=== PATIENT | female | born 1935 | race Caucasian/White ===

== ENCOUNTER 2016-09-23 13:30 | Emergency (ER) | payer MEDICARE, BC ==
--- NOTE | ~2016-09-23 | EKG ---
PATIENT: THANG CHENG UNIT #: [id number] Ventricular Rate: 78 BPM Atrial Rate: 78 BPM P-R Interval: 140 ms QRS Duration: 82 ms Q-T Interval: 354 ms QTC Calculation(Bezet): 403 ms P [place]: 77 degrees Calculated R [place]: -31 degrees Calculated T [place]: 59 degrees Diagnosis Line: Sinus rhythm Premature atrial complexes Diagnosis Line: Left axis deviation Diagnosis Line: Abnormal ECG Diagnosis Line: When compared with ECG of 16-MAR-2013 12:41, Diagnosis Line: No significant change was found Diagnosis Line: Confirmed by SUHAS CANALES MD ([id number]) on 09/24/2016 Diagnosis Line: 5:55:37 PM INTERPRETING MD: LALY IVERA
--- NOTE | ~2016-09-23 | CR72 ---
[facility] A Service of [facility] RADIOLOGY TEXT RESULTS PATIENT: THANG CHENG LOCATION: [facility] : 31 UNIT #: [id number] AGE: [address]: Sravan Alonso MD SEX: F ORDER DR: [id number] [facility]. [place], [place] [address] [id number] E MR#: [id number] #: [id number] NAME: THANG CHENG : 1935 SEX: F STUDY DATE/TIME: 09/23/2016 14:39 UNIT: [facility] ROOM: STUDY DESCRIPTION: CR Chest Single View Portable Attending Physician: Sravan Alonso M.D. Ordering Physician: Sravan Alonso M.D. Primary Care Physician: Nitish David M.D. MEDICAL IMAGING REPORT This report is preliminary unless electronic signature is present EXAM AP view of the chest. COMPARISON May 05, 2015, August 18, 2014, and March 16, 2013. INDICATIONS 80-year-old female with cough and fatigue for 1 week. History of hypertension. FINDINGS Cardiomediastinal silhouette is within normal limits. Lungs appear hyperexpanded suggestive of COPD. No evidence of pneumothorax, pleural effusion or acute airspace disease. Skin fold artifacts seen over the right chest. Minimal calcification of the aortic arch. S-shaped scoliosis of the thoracolumbar spine. Calcified granuloma in the right lower lobe. IMPRESSION Stable lung hyperexpansion suggestive of COPD. No acute radiographic abnormality of the chest. Normal heart size. Dictated by... Sridhar Prater M.D. THIS IS AN ELECTRONICALLY VERIFIED REPORT Sridhar Prater M.D. at 09/25/2016 10:16 PM KATHLEEN/chuy TD: 09/23/2016 19:32 JOB #: [id number] [facility] A Service [facility] RADIOLOGY TEXT RESULTS PATIENT: THANG CHENG LOCATION: [facility] : 31 UNIT #: [id number] AGE: [address]: Sravan Alonso MD SEX: F ORDER DR: MEDICAL IMAGING REPORT Page 1 of 1 COPY
[~2016-09-23 13:30] MED LIST: AMITRYPTYLINE PO; DARVOCET-N 1001 TAB PO
[2016-09-23 15:47] LABS: URINE SOURCE CLEAN CATCH
[2016-09-23 15:54] LABS: URINE APPEARANCE CLEAR; URINE BILIRUBIN NEG (NEG); URINE BLOOD NEG (NEG); URINE COLOR YELLOW; URINE GLUCOSE NEG (NEG); URINE KETONE NEG (NEG); URINE LEUKOCYTE ESTERASE NEG (NEG); URINE NITRATE NEG (NEG); URINE PH 7.5 (5-8); URINE PROTEIN NEG (NEG); URINE SPECIFIC GRAVITY 1.006 (1.003-1.035); URINE UROBILINOGEN 0.2 MG/DL (NEG)
[2016-09-23 15:54] LABS: POC - CKMB <1.0 ng/mL (0.0-7.9); POC - TROPONIN <0.05 ng/mL (<=0.05)
[2016-09-23 15:55] LABS: BASOPHIL% 0.7 % (0-2.5); EOSINOPHIL# 0.1 X10e3 (0-0.7); EOSINOPHIL% 2.2 % (0.0-7.0); HEMATOCRIT 40.5 % (35.0-45.0); HEMOGLOBIN 13.7 gm/dL (12.0-16.0); LYMPHOCYTE# 0.9 X10e3 (1.0-3.5); MEAN CELL VOLUME 88.7 FL (83-96); MEAN CORPUSCULAR HEMOGLOBIN 29.9 PG (28-34); MEAN CORPUSCULAR HGB CONC 33.8 g/dL (30-36); MEAN PLATELET VOLUME 8.2 FL (6.5-11.5); MONOCYTE# 0.5 X10e3 (0-1.0); MONOCYTE% 8.9 % (3.0-12.0); NEUTROPHIL# 3.6 X10e3 (1.5-7.1); NEUTROPHIL% 70.2 % (40-75); PLATELET COUNT 200 X10e3 (140-420); RED BLOOD COUNT 4.57 X10e (3.90-5.30); RED CELL DISTRIBUTION WIDTH 13.7 % (11.0-15.5); WHITE BLOOD COUNT 5.1 X10e3 (4.0-10.5)
[2016-09-23 15:57] LABS: CULTURE INDICATED? NO
[2016-09-23 16:12] LABS: DIFF IND NO
[2016-09-23 16:17] LABS: BILIRUBIN, DIRECT 0.1 mg/dL (0.0-0.2); BILIRUBIN,INDIRECT 0.2 mg/dL (0.0-0.9); BILIRUBIN,TOTAL 0.3 mg/dL (0.2-2.0); CALCIUM SERUM 9.6 mg/dL (8.4-10.2); GLOM FILT RATE Estimated 52.4 mL/min (>60); POTASSIUM 4.2 mmol/L (3.5-5.1); PROTEIN TOTAL SERUM 7.1 g/dL (6.0-8.3)
== END 2016-09-23 16:35 | disposition home or self-care (01) ==
LOC: CED 13:30
PROVIDERS: Emergency Medicine
DX: R53.1 Weakness (principal); K21.9 Gastro-esophageal reflux disease without esophagitis; Z88.8 Allergy status to other drugs, medicaments and biological substances
CPT/HCPCS: 36415; 71010; 80048; 80076; 81003; 82553; 84484; 85025; 93005; 99285

== ENCOUNTER 2016-10-17 18:31 | Emergency (ER) | payer MEDICARE, BC ==
[~2016-10-17] VITALS: Ht 152.4 cm; Wt 49.9 kg
--- NOTE | ~2016-10-17 | EKG ---
PATIENT: THANG CHENG UNIT #: [id number] Ventricular Rate: 71 BPM Atrial Rate: 71 BPM P-R Interval: 114 ms QRS Duration: 90 ms Q-T Interval: 378 ms QTC Calculation(Bezet): 410 ms P [place]: 83 degrees Calculated R [place]: -21 degrees Calculated T [place]: 47 degrees Diagnosis Line: Sinus rhythm with Premature atrial complexes Diagnosis Line: RSR' or QR pattern in V1 suggests right Diagnosis Line: ventricular conduction delay Diagnosis Line: Borderline ECG Baseline wander Diagnosis Line: When compared with ECG of 23-SEP-2016 14:32, Diagnosis Line: No significant change was found Diagnosis Line: Confirmed by PORSHA FOURNIER MD ([id number]) on 10/18/2016 Diagnosis Line: 7:37:09 PM INTERPRETING MD: SHANTANU VIERA
--- NOTE | ~2016-10-17 | CR72 ---
[facility] A Service of [facility] RADIOLOGY TEXT RESULTS PATIENT: THANG CHENG LOCATION: [facility] : 33 UNIT #: [id number] AGE: [address]: Linn Glass MD SEX: F ORDER DR: [id number] [facility] [address] [facility]. [place], [place] [address] [id number] E MR#: [id number] Acc #: [id number] NAME: THANG CHENG. : 1935 SEX: F STUDY DATE/TIME: 10/17/2016 19:38 UNIT: [facility] ROOM: STUDY DESCRIPTION: CR Chest Single View Portable Attending Physician: Linn Glass M.D. Ordering Physician: Linn Glass M.D. Primary Care Physician: Nitish David M.D. MEDICAL IMAGING REPORT This report is preliminary unless electronic signature is present EXAM Portable chest. HISTORY Chest tightness and pain today. FINDINGS The cardiac size and pulmonary vascularity are normal. Mild left lower thoracic curve and mild right upper lumbar curve. Tortuous descending thoracic aorta. Mild pleural thickening in the lung apices. No airspace infiltrates or effusions. IMPRESSION No acute findings. Dictated by... Ronal Storey M.D. THIS IS AN ELECTRONICALLY VERIFIED REPORT Ronal Storey M.D. at 10/18/2016 11:46 PM DFL/gz TD: 10/18/2016 10:18 JOB #: [id number] MEDICAL IMAGING REPORT Page 1 of 1 COPY
[2016-10-17 19:19] LABS: BASOPHIL# 0.1 X10e3 (0-0.3); BASOPHIL% 1.1 % (0-2.5); EOSINOPHIL# 0.2 X10e3 (0-0.7); EOSINOPHIL% 4.6 % (0.0-7.0); HEMOGLOBIN 13.9 gm/dL (12.0-16.0); LYMPHOCYTE# 1.4 X10e3 (1.0-3.5); LYMPHOCYTE% 26.2 % (17.0-45.0); MEAN CELL VOLUME 89.2 FL (83-96); MEAN CORPUSCULAR HEMOGLOBIN 30.2 PG (28-34); MEAN CORPUSCULAR HGB CONC 33.8 g/dL (30-36); MONOCYTE# 0.5 X10e3 (0-1.0); MONOCYTE% 9.1 % (3.0-12.0); NEUTROPHIL# 3.1 X10e3 (1.5-7.1); PLATELET COUNT 204 X10e3 (140-420); RED CELL DISTRIBUTION WIDTH 13.5 % (11.0-15.5); WHITE BLOOD COUNT 5.2 X10e3 (4.0-10.5)
[2016-10-17 19:22] LABS: DIFF IND NO
[2016-10-17 19:33] LABS: INR 1.1; PARTIAL THROMBOPLASTIN TIME 24.4 SECONDS (23.5-31.3); PROTHROMBIN TIME (PATIENT) 11.5 SECONDS (10.0-11.7)
[2016-10-17] MEDS ORDERED: TENORMIN25 MG PO (19:38)
[2016-10-17] MEDS ORDERED: REMERON30 MG PO (19:38)
[2016-10-17] MEDS ORDERED: ATIVAN PO (19:39)
[2016-10-17 19:41] LABS: POC - CKMB <1.0 ng/mL (0.0-7.9); POC - TROPONIN <0.05 ng/mL (<=0.05)
[2016-10-17 19:43] LABS: ALBUMIN SERUM 4.1 g/dL (3.5-5.0); ALKALINE PHOSPHATASE 41 U/L (32-92); ALT (SGPT) 15 U/L (10-40); AST (SGOT) 21 U/L (10-42); BILIRUBIN,TOTAL 0.5 mg/dL (0.2-2.0); BLOOD UREA NITROGEN 9 mg/dL (9-23); CALCIUM SERUM 9.3 mg/dL (8.4-10.2); CARBON DIOXIDE 30 mmol/L (22-31); CHLORIDE 98 mmol/L (100-111); CREATININE SERUM 0.9 mg/dL (0.6-1.4); GLOM FILT RATE Estimated 59.6 mL/min (>60); GLUCOSE FASTING 99 mg/dL (70-110); LIPASE 22 U/L (22-51); POTASSIUM 3.5 mmol/L (3.5-5.1); PROTEIN TOTAL SERUM 6.8 g/dL (6.0-8.3); SODIUM 135 mmol/L (135-145)
[2016-10-17 19:44] LABS: BILIRUBIN, DIRECT <0.1 mg/dL (0.0-0.2); BILIRUBIN,INDIRECT 0.4 mg/dL (0.0-0.9)
[2016-10-17 21:15] LABS: POC - CKMB <1.0 ng/mL (0.0-7.9); POC - TROPONIN <0.05 ng/mL (<=0.05)
== END 2016-10-17 22:12 | disposition home or self-care (01) ==
LOC: CED 18:31
PROVIDERS: Emergency Medicine
DX: F41.9 Anxiety disorder, unspecified (principal); I10 Essential (primary) hypertension; R00.0 Tachycardia, unspecified; Z90.49 Acquired absence of other specified parts of digestive tract; Z88.8 Allergy status to other drugs, medicaments and biological substances
CPT/HCPCS: 36415; 71010; 80048; 80076; 82553; 83690; 83880; 84484; 85025; 85610; 85730; 93005; 99284